=== PATIENT | male | born 1980 | race Caucasian/White ===

== ENCOUNTER → 2020-12-20 | Outpatient (CLI) | payer BC ==
--- NOTE | 2020-12-20 16:17 | MR ---
EXAMINATION TYPE: MR brain and iac wo/w con DATE OF EXAM: 12/20/2020 COMPARISON: None HISTORY: Hearing Loss in Left Ear x1 year TECHNIQUE: Multiplanar, multisequence images of the brain and brainstem with high-resolution and small field-of- view imaging through the internal auditory canals is performed without and with IV contrast, utilizin g 10ml mL intravenous Gadavist . FINDINGS: Diffusion weighted images demonstrate no evidence of a recent infarct or other diffusion ab normality. There is no extra-axial fluid collection. There are scattered periventricular, subcortic al hyperintensities and inversion recovery T2-weighted sequences, approximately 40-50 lesions are pre sent, the largest on the left frontal lobe on axial image 21 measures approximately 8 mm. The ventric ular system and cisternal spaces are normal in size and appearance. The brain volume is age appropri ate. There is no cerebellopontine angle mass. Internal auditory canals show symmetric and unremarkable lucero earance Midline structures demonstrate normal morphology. The craniocervical junction appears within normal limits. Post contrast images demonstrate no abnormal enhancement. The dural venous sinuses appear pa tent. The visualized sinuses are remarkable for inflammatory change in the ethmoid air cells and the globes are intact. IMPRESSION: Nonspecific white matter demyelination could be related to multiple sclerosis in the prop er clinical setting, consider migraine headaches, hypertension, Lyme disease, vasculitis and chronic small vessel ischemic changes. There is no evident internal auditory canal mass. Sinus disease.
== END | disposition home or self-care (01) ==
LOC: RADMRIMAIN 14:55
PROVIDERS: ATTEND Nurse Practitioner Family
DX: G37.8 Other specified demyelinating diseases of central nervous system (principal)
CPT/HCPCS: 70553; A9585

== ENCOUNTER 2021-02-12 08:34 | Day surgery (SDC) | payer BC ==
[2021-02-06 09:32] VITALS: BMI 33.0
[2021-02-12 08:59] VITALS: TEMP 97.7
[2021-02-12] MEDS ORDERED: LIDOCAINE 1% (10MG/ML) FOR IV START INTRADERMA ONE (09:14)
[2021-02-12] MEDS: LACTATED RINGERS 1,000 ML IV SCH ×2 (09:15→09:39)
[2021-02-12] MEDS ORDERED: MIDAZOLAM 2 MG/2 ML VIAL ONE (09:43)
[2021-02-12] MEDS ORDERED: fentaNYL (PF) 50 MCG/ML 2 ML AMP ONE (09:43)
[2021-02-12 09:50] LABS: ALT 34 U/L (4-49); AST 34 U/L (17-59)
--- NOTE | 2021-02-12 09:57 | P.PCN ---
Date of Procedure: 02/12/21 Description of Procedure: Procedure: 1.Lumbar puncture for CSF collection PREOPERATIVE DIAGNOSIS: Rule out multiple sclerosis as per neurologist POSTOPERATIVE DIAGNOSIS: Rule out multiple sclerosis as per neurologist SURGEON: Christian Morales ANESTHESIA: Local with 1% lidocaine, and IV sedation : Midazolam 2 mg, and fentanyl 50 g EBL: None. Specimen removed: 3 mL of CSF in each collecting tube X4 PROCEDURE INDICATION: The patient had history of a suspicious multiple scler osis . Consulted for lumbar puncture for CSF collection send it for analysis. PROCEDURE DESCRIPTION: The patient was seen and identified. Risks, benefits, complications, and alternatives were discussed with the patient. The patient agreed to proceed with the procedure and signed the consent, and vital signs were stable. Patient was taken to the procedure area, and time out was completed. The patient was placed in sitting position on procedure. . The lumbosacral area was prepped and draped in the usual sterile fashion. Critical pause was taken. Vital signs were closely monitored during the procedure. Posterior superior iliac crest landmarks was identified . The midline lumbar space also identified. Approximately at the level of L4-L5 interspinous space, skin and deeper tissues were localized with 5 mL of 1% lidocaine. Using a 22 gauge 3.5 spinal needle entered into subarachnoid space, with 1 attempt. Clear CSF came out of the spinal needle. 2.5 to 3 mL of CSF fluid collected in each tube 4. Needle was withdrawn intact, skin was cleansed, and bandages were applied. COMPLICATIONS: None. DISPOSITION / PLANS: The patient was placed in a supine position and transferred to the recovery area in a stable condition for observation. Patient was discharged from the recovery room after meeting discharge criteria. Home discharge instructions given to the patient by the staff. The patient was reexamined prior to discharge. Patient recommended to follow up with his neurologist for reports.
[2021-02-12] MEDS ORDERED: IV FLUID CONTINUATION 600 ML IV ONE (09:58)
[2021-02-12 10:00] VITALS: RESP 16
[2021-02-12 10:04] LABS: T4, Free (Free Thyroxine) 1.18 ng/dL (0.78-2.19)
[2021-02-12 10:59] VITALS: BP 123/82; PULSE 71
[2021-02-12 13:26] LABS: Appearance,CSF Clear; CSF Tube Number 4; CSF Tube Volume 2.5; Nucleated Cells, CSF 0 u/L (0-5); Red Blood Cell,CSF 0 u/L (0-10)
[2021-02-12 13:40] LABS: Glucose,CSF 61 mg/dL (40-70); Total Protein,CSF 58 mg/dL (12-60)
[2021-02-12 18:33] LABS: Rheumatoid Factor, Qnt <10 IU/mL (0-15)
[2021-02-12 19:36] LABS: Anti-DNA, DS unit <1.0 IU/mL; Anti-Smith Ab Interp NEGATIVE (NEGATIVE); DNA Double-Stranded NEGATIVE (NEGATIVE)
[2021-02-14 11:13] LABS: VDRL, Qualitative CSF Nonreactive (Nonreactive)
== END 2021-02-12 11:04 | disposition home or self-care (01) ==
LOC: ORPAIN 08:34
DX: G35 Multiple sclerosis (principal)
CPT/HCPCS: 62270; 82040; 82042; 82784; 82945; 83873; 83916; 84157; 84439; 84443; 84450; 84460; 86038; 86225; 86235; 86431; 86592; 86618; 86780; 87801; 88108; 89050

== ENCOUNTER → 2021-02-20 | Outpatient (CLI) | payer BC ==
--- NOTE | 2021-02-20 18:57 | US ---
EXAMINATION TYPE: US carotid duplex BILAT DATE OF EXAM: 02/20/2021 COMPARISON: NONE CLINICAL HISTORY: 40-year-old male R20.2 Paresthesia of skin. TECHNIQUE: Carotid duplex ultrasound examination. Indirect Doppler criteria was utilized. FINDINGS: EXAM MEASUREMENTS: RIGHT: Peak Systolic Velocity (PSV) cm/sec ----- Right CCA: 97.2 ----- Right ICA: 85.8 ----- Right ECA: 85.8 ICA/CCA ratio: 0.87 RIGHT: End Diastole cm/sec ----- Right CCA: 36.7 ----- Right ICA: 34.5 ----- Right ECA: 12.6 LEFT: Peak Systolic Velocity (PSV) cm/sec ----- Left CCA: 115 ----- Left ICA: 85.8 ----- Left ECA: 55.6 ICA/CCA ratio: 0.73 LEFT: End Diastole cm/sec ----- Left CCA:34.8 ----- Left ICA: 42.6 ----- Left ECA: 12.3 VERTEBRALS (direction of flow): Right Vertebral: Antegrade Left Vertebral: Antegrade Rhythm: Normal Juice Tester notes: Minimal atherosclerotic changes with no elevated velocities. IMPRESSION: No hemodynamically significant internal carotid artery stenosis on either side. Criteria for Assigning % of Stenosis / Diameter reduction (Estimation based on the indirect measurements of the internal carotid artery velocities (ICA PSV). 1. Normal (no stenosis)=ICA PSV < 125 cm/s: ratio < 2.0: ICA EDV<40 cm/s. 2. Less than 50% stenosis=ICA PSV < 125 cm/s: ratio < 2.0: ICA EDV<40 cm/s. 3. 50 to 69% stenosis=ICA PSV of 125 to 230 cm/s: ration 2.0 ? 4.0: ICA EDV 40-100 cm/s. 4. Greater than 70% stenosis to near occlusion= ICA PSV > 230 cm/s: ratio > 4.0: ICA EDV > 100 cm/s. 5. Near occlusion= ICA PSV velocities may be low or undetectable: variable ratio and ICA EDV. 6. Total occlusion=unable to detect flow.
== END | disposition home or self-care (01) ==
LOC: RADUSWWP 15:04
PROVIDERS: ATTEND Psychiatry & Neurology Neurology
DX: R20.2 Paresthesia of skin (principal)
CPT/HCPCS: 93880